=== PATIENT | female | born 1930 | race Caucasian/White ===

== ENCOUNTER 2019-05-04 18:06 | Emergency (ER) | payer MEDICARE ==
[~2019-05-04] VITALS: Ht 162.6 cm; Wt 75.0 kg
[~2019-05-04 18:06] MED LIST: AMITRIPTYLIN25 MG PO; ASPIRIN EC325 MG PO; CEFTIN500 MG PO; CLEOCIN150 M1 PO; DIAZEPAM5 MG PO; ENALAPRIL10 MG PO; GLYBURID MCR3 MG PO; HYDROXYZ HCL25 MG PO; LANTUS SOLOSTAR SC; LEVOTHYROXIN100 MCG PO; LEVOTHYROXIN112 MC1 PO; LEVOTHYROXIN125 MC1 PO; METFORMIN HCL1000 MG PO; METFORMIN1000 MG PO; TENORMIN PO; ULTRAM50 M1 PO
[2019-05-04] MEDS ORDERED: SPIRONOLACT50 MG PO (18:19)
[2019-05-04] MEDS ORDERED: FUROSEMIDE20 MG PO (18:19)
[2019-05-04] MEDS ORDERED: LISINOPRIL5 MG PO (18:19)
[2019-05-04 20:11] VITALS: BP 125/56
== END 2019-05-04 20:15 ==
LOC: ED 18:06
DX: S80.212A Abrasion, left knee, initial encounter (principal); S80.211A Abrasion, right knee, initial encounter; E11.9 Type 2 diabetes mellitus without complications; I10 Essential (primary) hypertension; F03.90 Unspecified dementia, unspecified severity, without behavioral disturbance, psychotic disturbance, mood disturbance, and anxiety; E03.9 Hypothyroidism, unspecified; K74.60 Unspecified cirrhosis of liver; W18.30XA Fall on same level, unspecified, initial encounter; Y92.098 Other place in other non-institutional residence as the place of occurrence of the external cause; Z79.84 Long term (current) use of oral hypoglycemic drugs

== ENCOUNTER 2019-07-13 18:23 | Emergency (ER) | payer MEDICARE ==
[~2019-07-13] VITALS: Ht 162.6 cm; Wt 75.0 kg
[~2019-07-13 18:23] MED LIST changes: +FUROSEMIDE20 MG PO; +LISINOPRIL5 MG PO; +SPIRONOLACT50 MG PO
[2019-07-13 19:13] LABS: HEMATOCRIT 35.5 % (37.0-47.0); HEMOGLOBIN 12.1 g/dl (12.0-16.0); IMMATURE GRANULOCYTES 0.4 % (0.0-5.0); MEAN CORPUSCULAR HGB 30.3 pG CALC (26.0-32.0); MEAN CORPUSCULAR HGB CONC 34.1 g/L CALC (32.0-36.0); NEUT# 3.44 thou/uL (2.00-7.15); RED CELL DISTRI WIDTH 13.8 % (11.5-15.5)
[2019-07-13 19:14] LABS: MEAN CELL VOLUME 88.8 fL CALC (80.0-100.0)
[2019-07-13 19:18] LABS: URINE BILIRUBIN - DIPSTICK NEGATIVE (NEGATIVE); URINE BLOOD DIPSTICK NEGATIVE (NEGATIVE); URINE COLOR YELLOW; URINE GLUCOSE - DIPSTICK NEGATIVE (NEGATIVE); URINE KETONE NEGATIVE (NEGATIVE); URINE LEUK ESTERASE NEGATIVE (NEGATIVE); URINE NITRITE - DIPSTICK NEGATIVE (Negative); URINE PH 5.5 (4.5-8.0); URINE PROTEIN - DIPSTICK NEGATIVE (NEG-TRACE); URINE SPECIFIC GRAVITY >=1.030; URINE UROBILINOGEN - DIPSTICK 0.2 E.U./dL (0.2)
[2019-07-13 19:21] LABS: BARBITURATES NEGATIVE (NEGATIVE); COCAINE NEGATIVE (NEGATIVE); METHADONE NEGATIVE (NEGATIVE); OXCYCODONE NEGATIVE (NEGATIVE); TETRAHYDROCANNABIONOL NEGATIVE (NEGATIVE); TRICYLIC ANTIDEPRESSANTS NEGATIVE (NEGATIVE)
[2019-07-13 19:35] LABS: ALBUMIN 4.2 g/dL (3.2-5.0); ALKALINE PHOSPHATASE 71 u/l (38-126); ANION GAP 15 (6-22 (CALC)); BILIRUBIN, TOTAL 0.5 mg/dL (0.0-1.4); BUN 33 mg/dL (8-23); BUN/CREATININE RATIO 33 (12-20 (CALC)); CARBON DIOXIDE 23 mmol/l (22-30); CHLORIDE 103 mmol/l (95-108); ETHYL ALCOHOL 0 mg/dl (0-30); GFR 52 ML/MIN (>=60 (CALC)); GFR FOR AFR.AMER. > 60 ML/MIN (>=60 (CALC)); POTASSIUM 4.8 mmol/l (3.5-5.1); SGOT/AST 24 u/l (9-36); SODIUM 136 mmol/l (137-146)
[2019-07-13 22:48] VITALS: BP 158/68
== END 2019-07-13 22:44 ==
LOC: ED 18:23
PROVIDERS: Family Medicine
DX: R45.850 Homicidal ideations (principal); R41.82 Altered mental status, unspecified; F03.90 Unspecified dementia, unspecified severity, without behavioral disturbance, psychotic disturbance, mood disturbance, and anxiety; F41.9 Anxiety disorder, unspecified; E11.9 Type 2 diabetes mellitus without complications; E03.9 Hypothyroidism, unspecified; I10 Essential (primary) hypertension; K74.60 Unspecified cirrhosis of liver; Z79.84 Long term (current) use of oral hypoglycemic drugs